=== PATIENT | male | born 1950 | race African-American/Black ===

== ENCOUNTER 2019-12-16 02:12 | Day surgery (SDC) | payer MEDICARE, SELFPAY ==
[2019-12-11 14:14] VITALS: BMI 27.1
[2019-12-16 10:03] VITALS: BP 146/80; PULSE 60; RESP 18; TEMP 36.6; O2SAT 100; BMI 27.5
--- NOTE | 2019-12-16 10:12 | P.PNAN_ITS ---
Anes - Initial Pre Proc Eval Procedure: Operation Date: 12/16/19 10:30 Proposed Procedures p Esophagogastroduodenoscopy - Chidi Orellana MD Date/Time: 12/16/19 10:12 Surgeon: Chidi Orellana MD Pre Op Diagnosis: Epigastric Pain Patient Data Age: 69 Gender: M Height: 5 ft 10 in Weight: 87 kg Last Vital Signs Temp 36.6 C 12/16/19 10:03 Pulse 60 12/16/19 10:03 Resp 18 12/16/19 10:03 BP 146/80 H 12/16/19 10:03 Pulse Ox 100 12/16/19 10:03 Allergies Allergy/AdvReac Type Severity Reaction Status Date / Time No Known Allergies Allergy Verified 12/16/19 10:02 Home Medications Medication Instructions Recorded Confirmed Type alprazolam 1 mg PO HS PRN 12/11/19 12/11/19 History pantoprazole 40 mg PO DAILY 12/11/19 12/11/19 History Patient hx anesthesia problems: none Family hx anesthesia problems: none [facility] Past Medical History Medical History (Updated 12/16/19 @ 10:13 by Christian Herman MD) Anxiety Overweight Surgical History Surgical History (Updated 12/16/19 @ 10:13 by Christian Herman MD) History of carpal tunnel release Anes - Eval Final PreProcedure Day of Procedure 12/16/19 10:12 Patient weight: overweight Heart: regular rate and rhythm Lungs: clear to auscultation Airway: Mallampati scale class II Neurological: alert and oriented Last oral intake: >/= 8 hours ASA classification: II Emergent: no Anesthetic plan: proceed Anesthesia type and monitoring: general GIVS and standard monitoring Informed Consent: The patient's anesthetic plan and its attendant risks and benefits were discussed with the patient/family/POA. Questions were solicited and answers provided to the satisfaction of the patient/family/POA.
[2019-12-16] MEDS: LACTATED RINGERS 1,000 ML 150 ML IV CONT (10:19)
--- NOTE | 2019-12-16 10:52 | P.CONGI_ITS ---
Assessment and Plan Additional Plan This is a 69-year-old black male patient seen in evaluation at the request of Dr. Yan. Patient complains of mid epigastric burning pain for the last 8 months. Typically will develop as the day progresses. Less noticeable early in the morning. It will developed more frequently after stress. Symptoms often are worse after eating. They may improve somewhat on standing. Patient has tried pantoprazole with no clear benefit to symptoms. He has taken this medicine for the last 3 months. He states when initially taking the pantoprazole it may have helped briefly. Past medical history is significant for colon polyps identified 2017. Family history is significant his niece and mother both have had colon cancer. Current medications include pantoprazole 40 mg p.o. daily. Alprazolam 1 mg p.o. at bedtime as needed. No known drug allergies. Physical exam reveals patient to be alert. Vital signs stable. HEENT exam unremarkable. He is anicteric. Lungs are clear to auscultation and percussion. Heart is without murmur or extra sounds. Abdominal exam bowel sounds are present soft nontender with no organomegaly. Digital external rectal exam normal. Impression 1. Epigastric pain. Etiology unclear. Appears to be coming from his stomach. Poor response to pantoprazole noted. Plan is for EGD. Further recommendations will be given after endoscopy. 2. Family history of colon cancer. 3. Personal history of colon polyps. Most recent colonoscopy 2017. Plan is for colonscopy at 5 year intervals. GI Consult Note Consult date/time: 12/16/19 10:52 HPI: Regulo Meza is a 69 year old male [facility] Past Medical History Medical History (Updated 12/16/19 @ 10:13 by Christian Herman MD) Anxiety Overweight Surgical History Surgical History (Updated 12/16/19 @ 10:13 by Christian Herman MD) History of carpal tunnel release Meds Home Medications and Allergies Home Medications Medication Instructions Recorded Confirmed Type alprazolam 1 mg PO HS PRN 12/11/19 12/11/19 History pantoprazole 40 mg PO DAILY 12/11/19 12/11/19 History Allergies Allergy/AdvReac Type Severity Reaction Status Date / Time No Known Allergies Allergy Verified 12/16/19 10:02 Vital Signs Vital Signs - 24 hr 12/16/19 10:03 Temperature 36.6 C Pulse Rate 60 Respiratory Rate 18 Blood Pressure 146/80 H Pulse Oximetry 100
[2019-12-16 11:16] VITALS: BP 93/58; PULSE 56; RESP 18; O2SAT 99
[2019-12-16 11:26] VITALS: BP 102/63; PULSE 56; RESP 18; O2SAT 99
[2019-12-16 11:36] VITALS: BP 117/71; PULSE 57; RESP 18; O2SAT 100
== END 2019-12-16 11:58 | disposition home or self-care (01) ==
PROVIDERS: PCP Family Medicine Adolescent Medicine; Visit Provider Internal Medicine Gastroenterology
PROC: 0DJ08ZZ Inspection of Upper Intestinal Tract, Via Natural or Artificial Opening Endoscopic (ICD-10-PCS; CPT 43235; principal; 2019-12-16 10:30)
DX: R10.13 Epigastric pain (principal); F41.9 Anxiety disorder, unspecified
CPT/HCPCS: 43239; 87081; J2704; J7120

== ENCOUNTER 2021-10-23 00:45 | Day surgery (SDC) | payer MEDICARE, SELFPAY ==
[2021-10-05 10:30] VITALS: BMI 28.4
--- NOTE | 2021-10-23 09:15 | P.PNAN_ITS ---
Anes - Initial Pre Proc Eval Procedure: Operation Date: 10/23/21 10:00 Proposed Procedures p Screening Colonoscopy - Chidi Orellana MD Date/Time: 10/23/21 09:15 Surgeon: Chidi Orellana MD Pre Op Diagnosis: family hx of colon ca Patient Data Age: 71 Gender: M Height: 1.78 m Weight: 90 kg Allergies Allergy/AdvReac Type Severity Reaction Status Date / Time No Known Allergies Allergy Verified 10/05/21 10:30 Home Medications Medication Instructions Recorded Confirmed Type alprazolam 1 mg PO HS PRN 12/11/19 10/05/21 History Patient hx anesthesia problems: none Family hx anesthesia problems: none Results Review: All pre-operative results and documents have been reviewed as part of the pre-operative evaluation. REPLACED BY [facility] Past Medical History Medical History (Updated 10/23/21 @ 09:16 by Christian Herman MD) Anxiety Normal esophagogastroduodenoscopy (EGD) Overweight Surgical History Surgical History (Updated 12/16/19 @ 10:13 by Christian Herman MD) History of carpal tunnel release Social History Social History Alcohol intake: current Drinks per week: 5 Substance use type: does not use Living arrangements: alone Anes - Eval Final PreProcedure Day of Procedure 10/23/21 09:15 Patient weight: normal Heart: regular rate and rhythm Lungs: clear to auscultation Airway: Mallampati scale class II Neurological: alert and oriented Last oral intake: >/= 8 hours ASA classification: II Emergent: no Anesthetic plan: proceed Anesthesia type and monitoring: general GIVS and standard monitoring Results Review: All pre-operative results and documents have been reviewed as part of the pre-operative evaluation. Informed Consent: The patient's anesthetic plan and its attendant risks and benefits were discussed with the patient/family/POA. Questions were solicited and answers provided to the satisfaction of the patient/family/POA.
[2021-10-23 09:18] VITALS: BP 150/92; PULSE 59; RESP 18; TEMP 36.9; O2SAT 100; BMI 30.9
--- NOTE | 2021-10-23 09:20 | WPDGICN ---
Assessment and Plan Assessment and plan (1) History of colon polyps: Code(s): Z86.010 - Personal history of colonic polyps Status: Acute GI Consult Note Consult date/time: 10/23/21 09:20 HPI: Regulo Meza is a 71 year old male Presents for neoplasia screening. Patient's current weight appetite bowel movements are normal. He denies abdominal pain. He has had no bleeding. Patient reports a prior history of colon polyps on previous colonoscopies. Most recently 3 or 4 years ago. Patient does have a niece who had colon cancer. He presents today for screening colonoscopy. Review of Systems Review of Systems: All systems reviewed & are unremarkable except as noted in HPI and below PMFSH Past Medical History Medical History (Updated 10/23/21 @ 09:22 by Chidi Orellana MD) Anxiety Normal esophagogastroduodenoscopy (EGD) Overweight Surgical History Surgical History (Updated 12/16/19 @ 10:13 by Christian Herman MD) History of carpal tunnel release Social History Social History Alcohol intake: current Drinks per week: 5 Substance use type: does not use Living arrangements: alone Meds Home Medications and Allergies Home Medications Medication Instructions Recorded Confirmed Type alprazolam 1 mg PO HS PRN 12/11/19 10/05/21 History Allergies Allergy/AdvReac Type Severity Reaction Status Date / Time No Known Allergies Allergy Verified 10/05/21 10:30 Vital Signs Vital Signs - 24 hr 10/23/21 09:18 Temperature 98.5 F Pulse Rate 59 L Respiratory Rate 18 Blood Pressure 150/92 H Pulse Oximetry 100 Exam Narrative: Physical exam reveals patient to be alert. Vital signs stable. HEENT exam is unremarkable. Patient is anicteric. Lungs are clear to auscultation and percussion. Heart is without murmur or extra sounds. Abdominal exam bowel sounds are present soft nontender with no hepatosplenomegaly. Digital external rectal exam is normal.
[2021-10-23] MEDS: LACTATED RINGERS 1,000 ML 150 ML IV CONT (09:25)
[2021-10-23 10:05] VITALS: BP 104/68; PULSE 56; RESP 13; O2SAT 97
[2021-10-23 10:15] VITALS: BP 107/64; PULSE 54; RESP 18; O2SAT 99
[2021-10-23 10:25] VITALS: BP 126/95; PULSE 57; RESP 13; O2SAT 100
== END 2021-10-23 10:38 | disposition home or self-care (01) ==
PROVIDERS: PCP Family Medicine Adolescent Medicine; Visit Provider Internal Medicine Gastroenterology
PROC: 0DJD8ZZ Inspection of Lower Intestinal Tract, Via Natural or Artificial Opening Endoscopic (ICD-10-PCS; CPT 45378; principal; 2021-10-23 10:00)
DX: Z12.11 Encounter for screening for malignant neoplasm of colon (principal); Z80.0 Family history of malignant neoplasm of digestive organs; D12.2 Benign neoplasm of ascending colon; K64.8 Other hemorrhoids; K57.30 Diverticulosis of large intestine without perforation or abscess without bleeding; F41.9 Anxiety disorder, unspecified
CPT/HCPCS: 45385; 88305; J2704; J7120

== ENCOUNTER 2023-01-25 20:40 | Observation (INO) | payer MEDICARE, SELFPAY ==
[2023-01-25] VITALS (7 sets, daily range): BP systolic 132–161; BP diastolic 67–79; PULSE 58–63; RESP 12–16; TEMP 37.1; O2SAT 96–100
--- NOTE | ~2023-01-25 | MR_ITS ---
EXAMINATION: MR brain/brain stem wo/w con DATE: 01/26/2023 12:27 INDICATION: TIA workup TECHNIQUE: Magnetic resonance imaging (MRI) of the brain and brainstem was performed with and without 17 mL MultiHance intravenous contrast. Sequences included sagittal and axial T1-weighted SE, axial d iffusion-weighted FS EPI ASSET, axial T2*-weighted GRE, axial T2-weighted FLAIR Propeller, and axial T2-weighted Propeller. Postcontrast axial and coronal T1-weighted SE was obtained. Apparent diffusion coefficient (ADC) maps were created. COMPARISON: CT brain 01/25/2023. FINDINGS: No abnormal restricted diffusion to suggest acute ischemic infarct. No MRI evidence of hemorrhage or extra-axial collection. Left cerebellar calcification. Normal white matter signal. No evidence of adv anced or lobar predominant parenchymal volume loss. The basilar cisterns are patent. Flow voids are p reserved. Right mastoid fluid. Left maxillary retention cyst or polyp. Dependent right maxillary flui d level with. Globes and orbital contents are within normal limits. IMPRESSION: No acute intracranial process. Reviewed, dictated and finalized at location K.
--- NOTE | ~2023-01-25 | XR_ITS ---
XR chest 1V portable DATE: 01/25/2023 21:06 INDICATION: Strokelike symptoms TECHNIQUE: PA chest COMPARISON: 09/09/2016 PA and lateral chest FINDINGS: Normal heart size. No hilar or mediastinal enlargement. No pulmonary infiltrate or consolid ation, pleural effusion or pulmonary vascular congestion or pneumothorax. Included skeletal structures are unremarkable. IMPRESSION: No active cardiopulmonary disease Reviewed, dictated and finalized at location A.
--- NOTE | ~2023-01-25 | CT_ITS ---
EXAMINATION: CTA brain carotid DATE: 01/26/2023 00:46 INDICATION: stroke symptoms TECHNIQUE: Computed tomographic angiography (CTA) of the head and neck was performed with 100 mL Omni paque-350 intravenous contrast. Automated exposure control and iterative reconstruction technique wer e employed. The dose-length product was 1253.72 mGy-cm. Maximum intensity projection and volume rende red 3D-reconstructions were created by the technologist on a separate workstation. COMPARISON: CT brain, 01/25/2023. FINDINGS: CTA HEAD: No large vessel occlusion, aneurysm, high flow vascular malformation, nidus or extravasation. [place] us carotid calcifications without significant stenosis. Symmetric parenchymal enhancement. Patent cer ebral veins. CTA NECK: Aortic arch and proximal great vessels: Mild atherosclerotic calcifications at the visualized aortic arch and proximal great vessels. Right common carotid, carotid bifurcation, and internal carotid artery: Mild calcification at the bif urcation.There is 0% stenosis of the proximal right internal carotid artery relative to normal distal artery lumen diameter (NASCET criteria). Left common carotid, carotid bifurcation, and internal carotid artery: Mild calcification at the bifu rcation.There is 0% stenosis of the proximal left internal carotid artery relative to normal distal a rtery lumen diameter (NASCET criteria). Vertebral arteries: No significant plaque or stenosis. Mild calcifications at the bilateral vertebral artery origins. Other findings: Left maxillary retention cyst/polyp. Cervical spondylosis. Periodontal disease. Senes cent changes in the lungs. IMPRESSION: No acute large vessel occlusion. No significant carotid or vertebral stenosis. Reviewed, dictated and finalized at location K.
--- NOTE | ~2023-01-25 | CT_ITS ---
EXAMINATION: CT brain wo con DATE: 01/25/2023 20:59 INDICATION: Slurred speech. Stroke like symptoms. TECHNIQUE: Computed tomography (CT) of the head was performed without intravenous contrast. The mA wa s adjusted according to patient size. Iterative reconstruction technique was employed. Exam dose: 60 5.33 mGy-cm total exam DLP. COMPARISON: None FINDINGS: Bilateral prominent vertebral artery calcifications and prominent bilateral carotid siphon internal carotid artery calcifications. There is nonspecific diminished attenuation of the cerebral white matter, likely due to chronic small vessel ischemic changes. No intracranial mass lesion or hemorrhage or cerebrovascular accident is noted. Prominent amorphous calcification within the left cerebellar hemisphere. No fracture or bone destruction of the cranial vault. Included paranasal sinuses and the mastoid air cells are normally developed and aerated. IMPRESSION: Cerebral atherosclerosis and chronic small vessel ischemic changes of the cerebral white matter No evidence of intracranial hemorrhage Chronic prominent left cerebellar hemispheric amorphous calcification Dr. Allen telephoned the report on 01/25/2023 2105 hours to emergency room physician Dr. Preciado Reviewed, dictated and finalized at Location [facility]. Reviewed, dictated and finalized at location A. IMPRESSION: Cerebral atherosclerosis and chronic small vessel ischemic changes of the cerebral white matter No evidence of intracranial hemorrhage Chronic prominent left cerebellar hemispheric amorphous calcification Dr. Allen telephoned the report on 01/25/2023 2105 hours to emergency room physici an Dr. Preciado
--- NOTE | 2023-01-25 20:41 | ECG_ITS ---
Measurements Intervals [place] Rate: 66 P: 24 NM: 133 QRS: -52 QRSD: 106 T: 5 QT: 401 QTc: 423 Interpretive Statements SINUS RHYTHM LEFT ANTERIOR FASCICULAR BLOCK VOLTAGE CRITERIA FOR LVH ABNORMAL ECG NO PREVIOUS ECG AVAILABLE FOR COMPARISON Electronically Signed On 01-26-2023 15:19:26 CDT by Alvin Hassan M.D.
[2023-01-25 21:01] LABS: Basophils Percent Auto 0.5 % (0.2-1.2); Eosinophils Absolute Auto 0.1 K/mm3 (0-0.3); Eosinophils Percent Auto 1.2 % (0-4.4); Hematocrit 44.9 % (42.0-52.0); Hemoglobin 15.2 g/dL (14.0-18.0); Immature Granulocyte Absolute 0.02 K/mm3 (0.00-0.031); Immature Granulocyte Percent A 0.3 % (0-0.5); Lymphocytes Absolute Auto 2.15 K/mm3 (0.9-3.2); Lymphocytes Percent Auto 28.3 % (18.3-44.2); Mean Corpuscular HGB Conc 33.9 g/dl (32-36); Mean Corpuscular Hemoglobin 32.3 pg (26-34); Mean Corpuscular Volume 95.3 fl (80-100); Mean Platelet Volume 9.6 fl (7.4-10.4); Monocytes Absolute Auto 0.7 K/mm3 (0.1-0.6); Monocytes Percent Auto 9.7 % (2.6-8.5); Neutrophils Absolute Auto 4.6 K/mm3 (1.3-6.7); Platelet Count Result 223 k/mm3 (150-375); Red Blood Count 4.71 M/mm3 (4.6-6.20); Red Cell Distribution Width 14.2 % (11.5-14.5); White Blood Count 7.6 K/mm3 (4.5-10.0)
[2023-01-25 21:10] LABS: Alanine Aminotransferase 20 U/L (6-50); Albumin Level 4.2 g/dL (3.5-5.1); Alkaline Phosphatase 45 U/L (38-126); Anion Gap 6 mmol/L (8-16); Aspartate Amino Transferase 31 U/L (17-59); Bilirubin,Total 0.8 mg/dL (0.2-1.3); Blood Urea Nitrogen 16 mg/dL (9-20); Carbon Dioxide 26 mmol/L (22-30); Chloride 106 mmol/L (98-107); Estimated CRCL calculation 46 ml/min; Estimated Glomerular Filt Rate > 60; Glucose 126 mg/dL (65-110); Potassium 3.4 mmol/L (3.4-5.0); Sodium 138 mmol/L (137-145)
[2023-01-25 21:14] LABS: Prothrombin Time 13.2 Seconds (11.1-14.7)
[2023-01-25 21:15] LABS: Partial Thromboplastin Time 28.4 SECONDS (22.3-36.8)
[2023-01-25 21:22] LABS: Troponin I < 0.012 ng/mL (0.000-0.034)
--- NOTE | 2023-01-25 23:45 | ED.NEUROSD ---
HPI - Neuro Symptoms/Deficit General Chief Complaint: Neuro Symptoms/Deficit <Estelle Lieberman PA-C - Last Filed: 01/26/23 04:49> Stated Complaint: slurred speech <Estelle Lieberman PA-C - Last Filed: 01/26/23 04:49> Time Seen by Provider: 01/25/23 23:33 <Estelle Lieberman PA-C - Last Filed: 01/26/23 04:49> History of Present Illness HPI Narrative: Patient is a 73-year-old healthy male here with his son here due to evaluation of slurred speech earlier today. Reportedly while patient was on the phone with a family member he started to have some slurred speech and reportedly was not making sense. The symptoms lasted for about 10 minutes and then resolved but according to patient's son patient is still not acting at his baseline and has been saying things that do not make sense . Patient is only complaining of a right-sided headache at this time. He denies history of previous similar sensation. States he only takes Xanax as needed and denies any other drug or alcohol use. Last known normal 1700. <DISHA Aggarwal Last Filed: 01/26/23 04:49> Related Data Home Medications: Home Medications Medication Instructions Recorded Confirmed testosterone cypionate 200 mg/mL 400 mg IM WEEKLY 01/26/23 01/26/23 intramuscular oil <DISHA Aggarwal Last Filed: 01/26/23 04:49> Allergies/Adverse Reactions: Allergies Allergy/AdvReac Type Severity Reaction Status Date / Time No Known Allergies Allergy Verified 01/26/23 04:51 <DISHA Aggarwal Last Filed: 01/26/23 04:49> Review of Systems Review of Systems: Gen: Denies fevers or chills Eyes: Denies eye pain or visual change ENT: Denies congestion Respiratory: Denies shortness of breath or cough CV: Denies chest pain or palpitations GI: Denies abdominal pain nausea, emesis or diarrhea denies burning, urgency, frequency or hematuria Musculoskeletal: Denies back pain or muscle pain Neuro: reports slurred speech, resolved Skin: Denies rash Except as documented, all other systems reviewed and negative <Estelle Lieberman PA-C - Last Filed: 01/26/23 04:49> [facility] Past Medical History Medical History: Medical History Anxiety Normal esophagogastroduodenoscopy (EGD) Overweight <Estelle Lieberman PA-C - Last Filed: 01/26/23 04:49> Surgical History Surgical History: Surgical History History of carpal tunnel release <Estelle Lieberman PA-C - Last Filed: 01/26/23 04:49> Family History Family History: Family History Mother Carcinoma of colon <Estlele Lieberman PA-C - Last Filed: 01/26/23 04:49> Social History Social History: Social History (Updated 05/22/22 @ 14:55 by Haleigh Dickerson MA) Smoking status: Never smoker Second hand tobacco smoke exposure: No Alcohol intake: current Drinks per week: 5 Substance use: current Substance use type: unknown Lack of Transportation: No Lack of Food: Never True Current Housing: I Have Housing Concerned About Future Housing: No Difficulty Paying Gas/Electric Bills: No Difficulty Paying for Meds: No Currently Unemployed: No Education: Don't Know Difficulty w/ Childcare or Family Care: No Living arrangements: with family Occupation/Education: retired Gender identity (if verbalized by the patient): Male Sexual Orientation (if Verbalized by the Patient): Straight or Heterosexual Spiritual care concerns: No Agree to blood products: Yes <Estelle Lieberman PA-C - Last Filed: 01/26/23 04:49> Exam Narrative: APPEARANCE: Alert, oriented, no acute distress. Head: Normocephalic and atraumatic. EYES: pupils are 2 mm and equal, round, reactive to light NOSE: No nasal drainage EARS: External
[2023-01-25] MEDS: ACETAMINOPHEN 325 MG TABLET 650 MG PO (23:54)
[2023-01-26] VITALS (21 sets, daily range): BP systolic 110–157; BP diastolic 67–90; PULSE 52–86; RESP 10–22; TEMP 36.7–36.8; O2SAT 97–100; BMI 27.2
[2023-01-26 00:28] LABS: Ethanol < 10 mg/dL (<10)
[2023-01-26 00:35] LABS: Amphetamine Screen Urine Negative (Negative); Barbiturate Screen Urine Negative (Negative); Benzodiazepines Screen Urine Positive (Negative); Cannabinoid Screen Urine Positive (Negative); Cocaine Screen Urine Positive (Negative); Methadone Screen Urine Negative (Negative); Opiate Screen Urine Negative (Negative); Phencyclidine Screen Urine Negative (Negative)
[2023-01-26 01:48] LABS: Appearance Urine Clear (Clear); Bilirubin Urine Negative (Negative); Blood Urine Negative (Negative); Color Urine Yellow (Yellow); Glucose Urine UA Negative (Negative); Ketones Urine Trace mg/dL (Negative); Leukocyte Esterase Ur Negative LEU/UL (Negative); Nitrate Urine Negative (Negative); Protein Urine Negative (Negative); Specific Grav Ur 1.028 (1.001-1.035); pH Urine 6.5 (5.0-9.0)
[2023-01-26 02:14] LABS: Add Urine Microscopic? YES
--- NOTE | 2023-01-26 02:40 | PM.IMHP ---
H&P: HPI History of Present Illness Date/Time: 01/26/23 02:40 Chief Complaint: Speech disturbance Narrative: This is a 73-year-old male with past medical history significant for care, generalized anxiety disorder, dyslipidemia. Patient was brought to the emergency room due to episode of speech disturbance, slurred speech. In emergency room this waxed and waned however patient had a 2nd episode in the emergency room where he was talking [facility] was called and decision was made not to give tPA. Patient is been admitted for further evaluation management and treatment. Preliminary workup was significant for: CT head FINDINGS: Bilateral prominent vertebral artery calcifications and prominent bilateral carotid siphon internal carotid artery calcifications. There is nonspecific diminished attenuation of the cerebral white matter, likely due to chronic small vessel ischemic changes. No intracranial mass lesion or hemorrhage or cerebrovascular accident is noted. Prominent amorphous calcification within the left cerebellar hemisphere. No fracture or bone destruction of the cranial vault. Included paranasal sinuses and the mastoid air cells are normally developed and aerated. IMPRESSION:? Cerebral atherosclerosis and chronic small vessel ischemic changes of the cerebral white matter No evidence of intracranial hemorrhage Chronic prominent left cerebellar hemispheric amorphous calcification Chest x-ray FINDINGS: Normal heart size. No hilar or mediastinal enlargement. No pulmonary infiltrate or consolidation, pleural effusion or pulmonary vascular congestion or pneumothorax. Included skeletal structures are unremarkable.? IMPRESSION: No active cardiopulmonary disease? Review of Systems Review of Systems: ROS unobtainable: Yes unobtainable due to medical condition (Speech disturbance, motor aphasia) PMFSH Past Medical History Medical History Anxiety Normal esophagogastroduodenoscopy (EGD) Overweight Surgical History Surgical History History of carpal tunnel release Family History Family History (Updated 05/22/22 @ 14:55 by Haleigh Dickerson MA) Mother Carcinoma of colon Social History Social History (Updated 05/22/22 @ 14:55 by Haleigh Dickerson MA) Smoking status: Never smoker Second hand tobacco smoke exposure: No Alcohol intake: current Drinks per week: 5 Substance use: never Substance use type: does not use Living arrangements: with family Occupation/Education: retired Gender identity (if verbalized by the patient): Male Sexual Orientation (if Verbalized by the Patient): Straight or Heterosexual Spiritual care concerns: No Agree to blood products: Yes Meds Home Medications and Allergies Home Medications Medication Instructions Recorded Confirmed Type atorvastatin 10 mg tablet 10 mg PO DAILY #90 tabs 06/13/22 01/04/23 Rx testosterone cypionate 200 mg/mL 400 mg (2 mL) IM .every 2 weeks #4 08/15/22 01/04/23 Rx intramuscular oil mL tadalafil 5 mg tablet See Rx Instructions .Route 10/23/22 01/04/23 Rx .COMPLEX #30 tabs amoxicillin 875 mg-potassium 1 tablet PO BID #14 tabs 01/03/23 01/04/23 Rx clavulanate 125 mg tablet alprazolam 1 mg tablet 1 mg PO BID PRN Insomnia #60 tabs 01/06/23 Rx Allergies Allergy/AdvReac Type Severity Reaction Status Date / Time No Known Allergies Allergy Verified 05/22/22 14:54 Vital Signs Vital Signs - 24 hr 01/25/23 20:49 01/25/23 22:54 01/25/23 23:02 Temperature 98.8 F Pulse Rate 63 58 L 61 Respiratory Rate 14 16 Blood Pressure 132/67 161/76 H 139/76 Pulse Oximetry 96 100 100 01/25/23 23:17 01/25/23 23:32 01/25/23 23:33 Temperature Pulse Rate 60 61 59 L Respiratory Rate 12 12 12 Blood Pressure 146/79 H 150/78 H Pulse Oximetry 100 100 100 01/25/23 2
[2023-01-26] MEDS: ASPIRIN 81 MG CHEWABLE TABLET PO (03:18)
[2023-01-26 08:35] LABS: Glucose Point of Care 101 mg/dl (65-105)
[2023-01-26] MEDS: ALPRAZolam (*CRX) 0.5 MG TABLET 1 MG PO (11:38)
[2023-01-26 11:50] LABS: Glucose Point of Care 95 mg/dl (65-105)
[2023-01-26 16:21] LABS: Glucose Point of Care 124 mg/dl (65-105)
[2023-01-27] VITALS: PULSE 49
[2023-01-27 04:00] VITALS: PULSE 66
[2023-01-27 04:59] VITALS: BP 106/64; PULSE 51; RESP 18; TEMP 36.6; O2SAT 97
[2023-01-27 08:00] VITALS: PULSE 51; RESP 18; O2SAT 97
[2023-01-27 08:27] LABS: Glucose Point of Care 90 mg/dl (65-105)
--- NOTE | 2023-01-27 10:32 | WPDNEURCNPN ---
Assessment and Plan Assessment and plan (1) Speech disturbance: Code(s): R47.9 - Unspecified speech disturbances Status: Acute (2) Generalized anxiety disorder: Code(s): F41.1 - Generalized anxiety disorder Status: Acute Plan 1 brought in for the change in the mental status [address] of the head and negative CTA 3 history of anxiety disorder4 dyslipidemia needs to be treated accordingly in addition to regular follow-up Consult date: 01/27/23 HPI: Regulo Meza is a 73 year old male Admitted to the hospital through the emergency room for the complaints of slurred speech while patient was on the telephone with the family member and was unable to make any sense to the alliance party on the other side. The whole episode lasted for about 10 minutes and then resolved but as per the information available from the patient's son he was still not acting normal was only complaining of right-sided headache at that particular time and there was no history of such problems in the past but patient has been taking Xanax on need basis though he does not take any other drugs and does not use alcohol , in the past he has been alcohol intake or 5 drinks per week but no smoking, initial exam in the emergency room was grossly nonfocal with normal vital signs at the borderline elevation of the blood pressure CBC was normal so as the BMP urine was positive for the benzodiazepine cocaine and cannabinoids, stroke scale was only 1, CT scan of the head documented chronic prominent left cerebellar hemisphere amorphous calcification but MRI of the brain is negative also TA does not document any large vessel disease Review of Systems Review of Systems: All systems reviewed & are unremarkable except as noted in HPI and below PMFSH Past Medical History Medical History Anxiety Normal esophagogastroduodenoscopy (EGD) Overweight Surgical History Surgical History History of carpal tunnel release Family History Family History Mother Carcinoma of colon Social History Social History (Updated 05/22/22 @ 14:55 by Haleigh Dickerson MA) Smoking status: Never smoker Second hand tobacco smoke exposure: No Alcohol intake: current Drinks per week: 5 Substance use: current Substance use type: unknown Lack of Transportation: No Lack of Food: Never True Current Housing: I Have Housing Concerned About Future Housing: No Difficulty Paying Gas/Electric Bills: No Difficulty Paying for Meds: No Currently Unemployed: No Education: Don't Know Difficulty w/ Childcare or Family Care: No Living arrangements: with family Occupation/Education: retired Gender identity (if verbalized by the patient): Male Sexual Orientation (if Verbalized by the Patient): Straight or Heterosexual Spiritual care concerns: No Agree to blood products: Yes Meds Home Medications and Allergies Home Medications Medication Instructions Recorded Confirmed Type alprazolam 1 mg tablet 1 mg PO BID PRN Insomnia #60 tabs 01/06/23 01/26/23 Rx testosterone cypionate 200 mg/mL 400 mg IM WEEKLY 01/26/23 01/26/23 History intramuscular oil Allergies Allergy/AdvReac Type Severity Reaction Status Date / Time No Known Allergies Allergy Verified 01/26/23 04:51 Vital Signs Vital Signs - 24 hr 01/26/23 12:00 01/26/23 16:00 01/26/23 14:00 Temperature 36.8 C Pulse Rate 61 52 L 59 L Respiratory Rate 20 Blood Pressure 110/69 Pulse Oximetry 97 Oxygen Delivery 01/26/23 20:02 01/26/23 20:00 01/26/23 20:00 Temperature 36.8 C Pulse Rate 54 L 55 L Respiratory Rate 18 Blood Pressure 112/67 Pulse Oximetry 99 Oxygen Delivery Room Air 01/27/23 00:00 01/27/23 04:00 01/27/23 04:59 Temperature 36.6 C Pulse Rate 49 L 66 51 L Respir
--- NOTE | 2023-01-27 11:44 | PM.DS ---
DS: Admitting Diagnosis Discharge Date January 27, 2023 Admitting Diagnosis Altered mental status DS: Discharge Diagnosis Discharge Diagnosis (1) Speech disturbance: Code(s): R47.9 - Unspecified speech disturbances Status: Acute Assessment and Plan: [facility] Neuro checks q.4 CT of the head reviewed CTA in progress preliminary reading with no acute abnormalities no acute large vessel occlusion A stroke team from [facility] recommends against tPA (2) Altered mental status, unspecified: Code(s): R41.82 - Altered mental status, unspecified Status: Acute Assessment and Plan: Resolved (3) Generalized anxiety disorder: Code(s): F41.1 - Generalized anxiety disorder Status: Acute Assessment and Plan: Unchanged (4) Pure hypercholesterolemia, unspecified: Code(s): E78.00 - Pure hypercholesterolemia, unspecified Status: Acute Assessment and Plan: Unchanged DS: Summary Hospital Course Hospital Course: Admitted for altered mental status, workup negative. Likely related from intoxication. Patient can be discharged Time Spent with Patient Time attestation: Total time spent providing and/or coordinating discharge services: Exam Narrative: Patient is laying in a stretcher Const: General: comfortable, no acute distress, well developed, alert, awake, average body habitus and other (Well-appearing) Nutritional Appearance: average body habitus Orientation/consciousness: patient oriented x3 HENMT: Head: normal to inspection, normocephalic and atraumatic Ears: hearing grossly normal bilaterally Face/Nose/Sinus: normal facial exam Face and sinus: normal facial exam Eyes: General: appearance normal, both eyes and all related structures Pupils: Equal, round and reactive pupils present EOM: EOMs intact bilaterally Neck: Neck: full ROM, no lymphadenopathy and no JVD Thyroid: thyroid normal Lymphatic: no lymphadenopathy noted Resp: Effort & Inspection: normal respiratory effort and able to speak in complete sentences Auscultation: clear to auscultation bilaterally Cardio: Jugular venous distension: no JVD Rate: regular rate Rhythm: regular rhythm Heart sounds: S1 normal heart sound present and S2 normal heart sound present : General: Yes deferred Skin: Rashes: no rashes Wounds: no wounds Neuro: General: patient oriented x3, tone normal, moves all extremities and CN's II-XI intact bilaterally Cranial nerves: Yes Equal, round and reactive pupils present, Yes Bilaterally intact EOM present, Yes Nystagmus not present, Yes Normal facial strength present, Yes facial symmetry and Yes Normal hearing present Cognition (Neuro): normal cognition Speech: normal speech Gait exam (Neuro): Normal gait present Motor exam (neuro): 5/5 motor strength present throughout Extrem: General: normal to inspection, full ROM, no joint enlargement and no pedal edema DS: Data Data Completed and Pending Labs on day of discharge: Labs from last 24 hours 01/27/23 01/26/23 01/26/23 08:13 16:12 11:32 POC Capillary Glucose 90 124 H 95 Discharge Plan Discharge Attending physician on discharge: Dwayne Salazar Consulting providers: Armando Mari Discharging Clinician: Dwayne Salazar Patient Disposition: Home, Self-Care Activity: no preference Diet: as tolerated Patient Instructions: Antibiotic Form Stand Alone Forms: General Discharge Information Follow-up/Referrals: Armando Mari MD [Physician] - Discharge Medications: Continued testosterone cypionate 200 mg/mL oil 400 mg IM WEEKLY Rx Instructions: as a single dose on alprazolam 1 mg tablet 1 mg PO BID PRN (Reason: Insomnia) Qty: 60 3RF Date of admission: 01/26/23 02:27 Primary Care Provider: William Ortiz Admitting Provider: Julien Carroll V. Attending physician on admission: Julien Carroll V. Condition: Stab
== END 2023-01-27 13:08 | disposition home or self-care (01) ==
LOC: ANHED 01-26 02:21 → ANH3MED 01-26 03:43
PROVIDERS: Emergency Medicine; Admitting Provider Internal Medicine; Emergency Provider Physician Assistant; PCP Family Medicine Adolescent Medicine; Visit Provider Chiropractor
DX: R47.81 Slurred speech (principal); R41.82 Altered mental status, unspecified; F41.1 Generalized anxiety disorder; E78.00 Pure hypercholesterolemia, unspecified; E66.3 Overweight; I67.2 Cerebral atherosclerosis; I44.4 Left anterior fascicular block; R94.31 Abnormal electrocardiogram [ECG] [EKG]; G93.89 Other specified disorders of brain; R29.703 NIHSS score 3; R90.82 White matter disease, unspecified; Z68.27 Body mass index [BMI] 27.0-27.9, adult; F10.90 Alcohol use, unspecified, uncomplicated; Y90.0 Blood alcohol level of less than 20 mg/100 ml; F12.90 Cannabis use, unspecified, uncomplicated; F14.90 Cocaine use, unspecified, uncomplicated; Z79.899 Other long term (current) drug therapy
CPT/HCPCS: 36415; 70450; 70496; 70498; 70553; 71045; 80053; 80307; 81001; 82948; 84484; 85025; 85610; 85730; 93005; 99285; A9270; A9577; G0378; Q9967

== ENCOUNTER 2025-01-18 09:49 | Outpatient (CLI) | payer MEDICARE, SELFPAY ==
--- NOTE | 2025-01-18 10:07 | ECHO_ITS ---
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 Summary 1. Complete two-dimensional, color flow and Doppler transthoracic echocardiogram is performed. 2. Left ventricular chamber dimension is mildly enlarged. 3. Left ventricular systolic function is normal, estimated at 55-60%. 4. There is mild concentric increased left ventricular wall thickness. 5. The left ventricular diastolic function is abnormal. 6. E/e' 15 is elevated. 7. Global longitudinal strain is mildly abnormal at -16.1%. 8. Left atrial chamber dimension is moderately enlarged. 9. There is moderate aortic valve sclerosis. 10. There is mild to moderate aortic valve stenosis with a peak velocity of 191 cm/s, mean gradient of 8 mmHg, and aortic valve area of 1.6 cm2. 11. The mitral valve has moderately calcified annulus. 12. There is trace mitral valve regurgitation. 13. There is mild tricuspid valve regurgitation. 14. No pulmonary hypertension, estimated pulmonary arterial systolic pressure is 35 mmHg. 15. There is mild pulmonic regurgitation. Left Ventricle E/e' 15 is elevated. Global longitudinal strain is mildly abnormal at -16.1%. Left ventricular chamber dimension is mildly enlarged. Left ventricular systolic function is normal, estimated at 55-60%. There is mild concentric increased left ventricular wall thickness. The left ventricular diastolic function is abnormal. Right Ventricle Right ventricular systolic function is normal and with normal TAPSE 2.0 cm. Right ventricular chamber dimension is normal. Left Atria Left atrial chamber dimension is moderately enlarged. Right Atria Right atrial chamber dimension is normal. Aortic Valve The aortic valve is trileaflet. There is moderate aortic valve sclerosis. There is mild to moderate aortic valve stenosis with a peak velocity of 191 cm/s, mean gradient of 8 mmHg, and aortic valve area of 1.6 cm2. There is no aortic valve regurgitation. Pulmonic Valve There is mild pulmonic regurgitation. Mitral Valve The mitral valve has moderately calcified annulus. There is no mitral valve stenosis. There is trace mitral valve regurgitation. Tricuspid Valve There is mild tricuspid valve regurgitation. No pulmonary hypertension, estimated pulmonary arterial systolic pressure is 35 mmHg. Pericardium/Pleural There is no pericardial effusion. Inferior Vena Cava Normal inferior vena cava with >50% collapse upon inspiration consistent with normal right atrial pressure, 5 mmHg. Aorta The aortic root size at the sinus of Valsalva is normal. Left Ventricular Outflow Tract Name Value Normal LVOT 2D LVOT Diameter 2.0 cm LVOT Doppler LVOT Peak Gradient 4 mmHg LVOT Mean Gradient 2 mmHg LVOT VTI 24 cm LVOT VTI/AV VTI Ratio 0.5 LVOT Stroke Volume 74 ml LVOT CO 3.9 l/min LVOT CI 1.8 l/min/m2 Pulmonic Valve Name Value Normal RVOT Doppler RVOT Peak Gradient 1 mmHg PV Doppler PV Peak Gradient 6 mmHg Mitral Valve Name Value Normal MV Doppler MV Decel Cache 519 cm/s2 MV PHT 61 ms MV Area (PHT) 3.6 cm2 4.0-5.0 MV Diastolic Function MV E Peak Velocity 110 cm/s MV A Peak Velocity 86 cm/s MV E/A 1.3 MV Decel Time 211 ms Tricuspid Valve Name Value Normal TV Regurgitation Doppler TR Peak Velocity 274 cm/s TR Peak Gradient 30 mmHg Estimated PAP/RSVP RA Pressure 5 mmHg <=5 PA Systolic Pressure 35 mmHg <36 RV Systolic Pressure 35 mmHg <36 Aorta Name Value Normal Ascending Aorta Ao Root Diameter (MM) 3.7 cm Ao Root Diam Index (MM) 1.7 cm/m2 Aortic Valve Name Value Normal AV 2D/MM AV Area (Planimetry) 1.6 cm2 AV Doppler AV Peak Velocity 191 cm/s AV Peak Gradient 13 mmHg AV Mean Gradient 8 mmHg AV VTI 45 cm AV Area (Cont Eq VTI) 1.6 cm2 >=3.0 AV Area (Cont Eq Dharmesh) 1.6 cm2 AV Regurgitation 2D LVOT Area 3.0 cm2 Ventricles Name Value Normal LV Dimensions 2D/MM IVS Diastolic Thickness (2D) 1.0 cm 0.6-1.0 IVS Diastole Thickness (MM) 1.0 cm 0.6-1.0 LVID Diastole (2D) 5.5 cm 4.2-5.8 LVID Diastole (MM) 5.5 cm 4.2-5.8 LVIW Diastolic Thickness (2D) 0.9 cm 0.6-1.0 LVIW Diastolic Thickness (MM) 1.0 cm 0.6-1.0 LVID Systole (2D) 4.1 cm 2.5-4.0 LVID Systole (MM) 3.9 cm 2.5-4.0 LVOT Diameter 2.0 cm LV Mass (2D Cubed) 203.49 g 88.00-224.00 LV Mass Index (2D Cubed) 96 g/m2 49-115 Relative Wall Thickness (2D) 0.34 LV Mass (MM Cubed) 215.58 g 88.00-224.00 LV Mass Index (MM Cubed) 101 g/m2 49-115 Relative Wall Thickness (MM) 0.35 LV Fractional Shortening/Ejection Fraction 2D/MM LV Fractional Shortening (2D) 26 % 25-43 LV Fractional Shortening (MM) 29 % 25-43 LV EF (MM Teicholz) 55 % 52-72 LV EF (2D Teicholz) 50 % 52-72 LV Diastolic Volume (4C MOD) 114 ml LV EF (4C MOD) 47 % LV Diastolic Volume (2C MOD) 102 ml LV EF (2C MOD) 57 % LV Diastolic Volume (BP MOD) 108 ml 62-150 LV Diastolic Volume Index (BP MOD) 51 ml/m2 34-74 LV Systolic Volume (BP MOD) 53 ml 21-61 LV Systolic Volume Index (BP MOD) 25 ml/m2 11-31 LV EF (BP MOD) 51 % 52-72 LV Diastolic Length (4C) 8.3 cm LV Systolic Length (4C) 7.3 cm LV Stroke Volume (4C MOD) 53 ml Atria Name Value Normal LA Dimensions LA Dimension (MM) 4.3 cm 3.0-4.1 LA Volume (4C A-L) 59 ml LA Volume (BP A-L) 84 ml RA Dimensions RA Area (4C) 18.0 cm2 <=18.0 EchoPAC Name Value Normal AutoEF LVCO_BiP_Q (Ppbl6HSQ) 3.1 l/min LVEF_BiP_Q (Grve7XGB) 48 % LVSV_BiP_Q (Xdwr8HSM) 61 ml LVVED_BiP_Q (Ugyh4MAE) 127 ml LVVES_BiP_Q (Hjdq3AJO) 66 ml HR_4Ch_Q (Jelw1VLQ) 56 bpm LVCO_4Ch_Q (Koko4QCA) 3.1 l/min LVEF_4Ch_Q (Idwp5MOS) 47 % LVLd_4Ch_Q (Ffpk9MGP) 8.6 cm LVLs_4Ch_Q (Zwsl4BPW) 7.2 cm LVSV_4Ch_Q (Zmgo2JSQ) 55 ml LVVED_4Ch_Q (Excz8CUA) 118 ml LVVES_4Ch_Q (Spnr4CAZ) 63 ml HR_2Ch_Q (Vghr9SCI) 53 bpm LVCO_2Ch_Q (Kkqx4NNR) 3.1 l/min LVEF_2Ch_Q (Bhat2XUD) 46 % LVLd_2Ch_Q (Rleg9MRL) 8.3 cm LVLs_2Ch_Q (Wlsx8XCA) 7.2 cm LVSV_2Ch_Q (Bvnw4RGI) 58 ml LVVED_2Ch_Q (Ffjj3YOY) 125 ml LVVES_2Ch_Q (Dbwo2EPX) 67 ml CHANEL AA peak sys SL (AWMA) 22.9 % AAS peak sys SL (AWMA) 23.5 % AI peak sys SL (AWMA) 20.9 % AL peak sys SL (AWMA) 21.7 % AP peak sys SL (AWMA) 24.3 % peak sys SL (AWMA) 23.1 % AVC (AWMA) 451 ms BA peak sys SL (AWMA) 7.6 % BAS peak sys SL (AWMA) 9.9 % BI peak sys SL (AWMA) 14.2 % BL peak sys SL (AWMA) 10.1 % BP peak sys SL (AWMA) 15.3 % BS peak sys SL (AWMA) 7.6 % G peak SL(A2C) (AWMA) 16.1 % G peak SL(A4C) (AWMA) 15.3 % G peak SL(APLAX) (AWMA) 17.1 % G peak SL(Avg) (AWMA) 16.2 % MA peak sys SL (AWMA) 16.2 % MAS peak sys SL (AWMA) 18.8 % OR peak sys SL (AWMA) 15.9 % ML peak sys SL (AWMA) 15.2 % MP peak sys SL (AWMA) 15.6 % MS peak sys SL (AWMA) 15.6 % Report Signatures
--- OUTSIDE RECORDS SUMMARY | 2025-01-18 10:48 | XMS_ITS | Referral Summary ---
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
--- OUTSIDE RECORDS SUMMARY | 2025-01-18 10:48 | XMS_ITS | Clinical Summary ---
Author Organization [facility] Address [address] [place] [id number] Care Team Providers Care Lock Corner Machine Operator Name Role Phone Unavailable Primary Care Provider Unavailabl e Social History Tobacco Use Types Packs/Day Years Used Date Smoking Tobacco: Never Assessed Sex and Gender Information Value Date Recorded Sex Assigned at Not on file Legal Sex Male 6:23 PM CDT Gender Identity Not on file Sexual Orientation Not on file Plan of Treatment Health Maintenance Due Date Last Done Comments Colorectal Cancer Screening Colonoscopy (10 Years) 1950 Hepatitis C 1969 DTaP, Tdap and Td Vaccines ( 1 - Tdap) 1970 Zoster Vaccines (1 of 2) 2001 Pneumococcal Vaccine: 65+ Ye ars (1 of 1 - PCV) 01/08/2016 COVID-19 Vaccine ( - 2023-2 5 season) 2024 Influenza Adult (#1) 2024 RSV Immunization or 60+ Years (1 - 1-dose 75+ series) 2026 Meningococcal B Vaccine Aged Out No l onger eligible based on patient's age to complete this topic Meningococcal Vaccine Aged Out No pacheco taylor eligible based on patient's age to complete this topic RSV Immunizations Under 20 Months Aged Out No longer eligible based on patient's age to complete this topic
--- OUTSIDE RECORDS SUMMARY | 2025-01-18 10:48 | XMS_ITS | Continuity of Care Document ---
Author Organization [facility] Address [address] [place] [address] Phone Care Team Providers Care Labor Conciliator Name Role Phone Hamzah Ye MD Unavailable Unavailable Procedures Procedure Date Medical Testimony Deposition Special Narrative Report Special Narrative Report Special Narrative Report Independent Medical Examination SARABJIT Advance Directives Directive Yes / No Effective Date File Name No Information Encounters Encounter Description Practice Location Reason(s) For Visit Diagnoses Date Provider Providers Copied on Encounter [facility], [address], [id number], tel:[phone] [facility] No Information 9 Cassi Goodson. [address] [place] [address], [address], [id number] , [place]. tel: [phone] [facility], [address] [place] [address], [id number], [place] tel:[phone] [facility] No Information 9 Cassi Goodson. [address] [place] [address], [address], [id number] , [place]. tel: [phone] [facility], [address] [place] [address], [id number], [place] [phone] [facility] No Information 7 Cassi Goodson. [address] [facility], [address], [place], [place], [id number] , [place]. tel: [phone] [facility], [address] [address], [place], [place], [id number], [place] [phone] [facility] No Information Cassi Goodson. [address] [facility], [address], [place], [place], [id number] , [place]. tel: [phone] Independent Medical Examination SARABJIT [facility], [address], [id number], [place] [phone] [facility] SARABJIT (chief complaint) Pain in left handPain in right handPain in left elbowPain in right elbow Sep-0 Cassi Goodson. [address] [facility], [place] [address], [place], [place], [id number] , [place]. tel: [phone] Family History Family Member Type Diagnosis Age At Onset No Information Payers Payer name Insurance type Covered constitution party ID Authoriza tion(s) No Information Social History Type Description Quantity Date Captured Comments Sex Male Smoking Status No Information Chief Complaint And Reason For Visit No Information Reason For Referral Reason For Referral No Information History Of Present Illness Encounter Date Complaint History Of Prese nt Illness SARABJIT Functional Status Date Functional Assessmen t No Information Instructions Date Instruction Additional Infor mation No Information Assessments Type Assessment Date No Information Patient Care Teams Name Effective Dates (start - stop) Status Members No Information
--- OUTSIDE RECORDS SUMMARY | 2025-01-18 10:48 | XMS_ITS | Clinical Summary ---
Author Organization [facility] Address [address] [place] [address] Care Team Providers Care Online Facilitator Name Role Phone Unavailable Primary Care Provider Unavailabl e Social History Tobacco Use Types Packs/Day Years Used Date Smoking Tobacco: Never Assessed Sex and Gender Information Value Date Recorded Sex Assigned at Not on file Legal Sex Male 9:34 PM CDT Gender Identity Not on file Sexual Orientation Not on file Plan of Treatment Health Maintenance Due Date Last Done Comments Hepatitis C Virus (HCV) Screening 1950 TdaP Immunization 1950 Colonoscopy 01/08/1996 Colorectal Cancer Screening 01/08/1996 Cologuard 2001 Immunochemical Fecal Occult Blood 2001 Pneumococcal Immunization (5 0+ years) (1 of 1 - PCV) 2001 Zoster Immunization (1 of 2) 2001 Influenza Immunization (#1) 2024 08/28/2018 SARS-COV-2 Immunization ( - season) 2024 07/20/2021, 12/09/2020, 11/18/2020 Respiratory Syncytial Virus (RSV) Immunization (Adult) (1 - 1-dose 75+ series) 2026 Hepatitis B Immunization Aged Out No longer eligible based on patient's age to complete this topic Meningococcal Immunization (ACWY) Aged Out No longer eligible b ased on patient's age to complete this topic Rotavirus Immunization Aged Out No lo nger eligible based on patient's age to complete this topic
--- OUTSIDE RECORDS SUMMARY | 2025-01-18 10:48 | XMS_ITS | Clinical Summary ---
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
== END 2025-01-18 09:50 | disposition home or self-care (01) ==
PROVIDERS: PCP Family Medicine Adolescent Medicine; Visit Provider Nurse Practitioner Family
DX: I36.1 Nonrheumatic tricuspid (valve) insufficiency (principal); I35.0 Nonrheumatic aortic (valve) stenosis
CPT/HCPCS: 93306